=== PATIENT | female | born 1975 | race Caucasian/White ===

== ENCOUNTER 2017-08-02 10:46 | Emergency (ER) | payer OTHER ==
[~2017-08-02] VITALS: Ht 160 cm; Wt 64.0 kg
[2017-08-02 11:46] LABS: URINE BILIRUBIN - DIPSTICK NEGATIVE (NEGATIVE); URINE BLOOD DIPSTICK NEGATIVE (NEGATIVE); URINE CLARITY CLEAR; URINE COLOR YELLOW; URINE GLUCOSE - DIPSTICK NEGATIVE (NEGATIVE); URINE KETONE NEGATIVE (NEGATIVE); URINE LEUK ESTERASE NEGATIVE (NEGATIVE); URINE NITRITE - DIPSTICK NEGATIVE (Negative); URINE PH 5.5 (4.5-8.0); URINE PROTEIN - DIPSTICK NEGATIVE (NEG-TRACE); URINE SPECIFIC GRAVITY 1.015; URINE UROBILINOGEN - DIPSTICK 0.2 E.U./dL (0.2)
[2017-08-02] MEDS ORDERED: CRIXIVAN400 MG PO (11:47)
[2017-08-02] MEDS ORDERED: COMBIVIR 1501 COMBO PO (11:47)
[2017-08-02 12:04] LABS: HEMATOCRIT 42.5 % (37.0-47.0); HEMOGLOBIN 13.9 g/dl (12.0-16.0); IMMATURE GRANULOCYTES 0.4 % (0.0-1.0); MEAN CELL VOLUME 86.4 fL CALC (80.0-100.0); MEAN CORPUSCULAR HGB 28.3 pG CALC (26.0-32.0); MEAN CORPUSCULAR HGB CONC 32.7 g/L CALC (32.0-36.0); NEUT# 3.31 thou/uL (2.00-7.15); RED BLOOD COUNT 4.92 mill/uL (4.20-5.60); RED CELL DISTRI WIDTH 12.9 % (11.5-15.5)
[2017-08-02 12:10] VITALS: BP 129/74
[2017-08-02 12:13] LABS: ALBUMIN 4.5 g/dL (3.2-5.0); ALKALINE PHOSPHATASE 92 u/l (38-126); ANION GAP 14 (6-22 (CALC)); BILIRUBIN, TOTAL 0.5 mg/dL (0.0-1.4); BUN 19 mg/dL (7-17); BUN/CREATININE RATIO 24 (12-20 (CALC)); CALCIUM 9.7 mg/dL (8.4-10.2); CARBON DIOXIDE 27 mmol/l (22-30); CHLORIDE 107 mmol/l (95-108); CREATININE 0.8 mg/dL (0.5-1.0); GFR > 60 ML/MIN (>=60 (CALC)); GFR FOR AFR.AMER. > 60 ML/MIN (>=60 (CALC)); GLUCOSE 111 mg/dL (65-105); POTASSIUM 4.6 mmol/l (3.5-5.1); SGOT/AST 28 u/l (14-36); SGPT/ALT 38 u/l (9-52); SODIUM 144 mmol/l (137-146); TOTAL PROTEIN 7.1 g/dL (6.3-8.2)
[2017-08-02] MEDS ORDERED: CRESTOR10 MG PO (12:15)
[2017-08-02] MEDS ORDERED: LEVOTHYROXIN25 MC1 PO (12:15)
== END 2017-08-02 12:10 | disposition home or self-care (01) | DRG 605 ==
LOC: ED 10:46
PROVIDERS: Emergency Medicine
DX: S61.432A Puncture wound without foreign body of left hand, initial encounter (principal); W46.1XXA Contact with contaminated hypodermic needle, initial encounter; Y93.89 Activity, other specified; Y92.234 Operating room of hospital as the place of occurrence of the external cause

== ENCOUNTER 2018-03-08 14:28 | Emergency (ER) | payer OTHER ==
[~2018-03-08] VITALS: Ht 160 cm; Wt 60.0 kg
[~2018-03-08 14:28] MED LIST: COMBIVIR 1501 COMBO PO; CRESTOR10 MG PO; CRIXIVAN400 MG PO; LEVOTHYROXIN25 MC1 PO
[2018-03-08] MEDS ORDERED: COMBIVIR 1501 COMBO PO (15:16)
[2018-03-08] MEDS ORDERED: CRIXIVAN400 MG PO (15:16)
[2018-03-08 15:45] VITALS: BP 118/68
== END 2018-03-08 15:45 | disposition home or self-care (01) | DRG 951 ==
LOC: ED 14:28
DX: Z77.21 Contact with and (suspected) exposure to potentially hazardous body fluids (principal); X58.XXXA Exposure to other specified factors, initial encounter; Y92.234 Operating room of hospital as the place of occurrence of the external cause; Y99.0 Civilian activity done for income or pay